=== PATIENT | male | born 1935 | race Caucasian/White ===

== ENCOUNTER 2016-07-08 00:46 | Inpatient (IN) | payer MEDICARE, BC ==
--- NOTE | 2016-07-08 01:49 | ED ---
General Adult HPI - General Chief complaint: Shortness of Breath Stated complaint: Low BP/Fluid on Lungs Time Seen by Provider: 07/08/16 01:06 Source: patient Mode of arrival: ambulatory Limitations: no limitations - History of Present Illness Initial comments: Patient is a transfer from [facility], the ER doctor called me about Mr. Robert jeffers, decided he presented with cough and he had a fever of 1 or 2 pills so doubt that his troponin was elevated they checked his 2 troponins in the boat were able normally elevated at one point he had a low blood pressure he got some fluid bolus that helped the blood pressure get better he did the CT chest angiogram, rule out PE, he was given antibiotics and now fluids chest x-ray was done and showed right pleural effusion CBC was normal troponin is elevated 2 the MP was elevated as well his lactate was elevated. His INR was 2.08. 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 On arrival he feels lot better than he did an [facility] shortness of breath has resolved pretty much and he do not have any chest pain) previous system is unremarkable - Related Data Home Medications Medication Instructions Recorded Confirmed Digoxin [Lanoxin] 125 mcg PO DAILY 07/08/16 07/08/16 Furosemide [Lasix] 40 mg PO DAILY 07/08/16 07/08/16 Magnesium Oxide [Mag-Ox] 250 mg PO DAILY 07/08/16 07/08/16 Metoprolol Tartrate [Lopressor] 75 mg PO BID 07/08/16 07/08/16 Simvastatin [Zocor] 10 mg PO DAILY 07/08/16 07/08/16 Spironolactone [Aldactone] 12.5 mg PO DAILY 07/08/16 07/08/16 Warfarin [Coumadin] 5 mg PO DAILY 07/08/16 07/08/16 traMADol HCl [Ultram] 50 mg PO Q6H PRN 07/08/16 07/08/16 Allergies Allergy/AdvReac Type Severity Reaction Status Date / Time No Known Allergies Allergy Verified 07/08/16 00:53 Review of Systems ROS Statement: Those systems with pertinent positive or pertinent negative responses have been documented in the HPI. ROS Other: All systems not noted in ROS Statement are negative. Past Medical History Past Medical History: Coronary Artery Disease (CAD) History of Any Multi-Drug Resistant Organisms: None Reported Past Surgical History: Coronary Bypass/CABG Past Psychological History: No Psychological Hx Reported Smoking Status: Never smoker Past Alcohol Use History: Rare Past Drug Use History: None Reported General Exam - General Exam Comments Initial Comments: General: The patient is awake and alert, in no distress, and does not appear acutely ill. ACS is 15 Skin: Skin is warm and dry and no rashes or lesions are noted. He has a good skin color Eye: Pupils are equal, round and reactive to light, extra-ocular movements are intact; there is normal conjunctiva bilaterally. Ears, nose, mouth and throat: There are moist mucous membranes and no oral lesions. Neck: The neck is supple, there is no tenderness or JVD. Cardiovascular: There is a regular rate and rhythm. No murmur, rub or gallop is appreciated. Noticed a scar from his previous CABG Respiratory: To auscultation bilateral, decreased breath sounds bilateral Gastrointestinal: Soft, non-distended, non-tender abdomen without masses or organomegaly noted. There is no rebound or guarding present. Bowel sounds are unremarkable. Back: There is no tenderness to palpation in the midline. There is no obvious deformity. Musculoskeletal: Normal ROM, no tenderness, There is no pedal edema. There is no calf tenderness or swelling. No cords were appreciated. Neurological: CN II-XII intact, Cranial nerves III through XII are intact. There are no obvious motor or sensory deficits. Coordination appears grossly intact. Speech is normal. Psychiatric: Cooperative, appropriate mood & affect, normal judgment. Limitations: no limitations Course Vital Signs 07/08/16 00:48 Temperature 98.4 F Pulse Rate 95 Respiratory 18 Rate Blood Pressure 111/64 O2 Sat by Pulse 97 Oximetry EKG Findings - EKG Comments: EKG Findings:: EKG is a sinus rhythm with a first-degree block the patient has a history of atrial fibrillation is ventricular rate is 94 NC interval is 224 QRS duration is 122 QT/QTc is 394/492 noticed some T-wave flattening in lead 1 and lead 3 T-wave flattening in aVL as well noticed some mom ST depression in lead V6 noticed poor progression of the R wave in lead V1 and V2 and V3 Critical Care Time Total Critical Care Time: 45 Critical Care Time: This is a transfer from [facility], on arrival patient examined reviewed all his blood work done there that included CBC, comprehensive metabolic panel, troponin, BNP, chest x-rays, CT chest, noticed that 2 troponins were elevated though he is not a candidate of any heparinization CN since he is in a Coumadin and his INR is almost therapeutic 2.0 to he had antibiotics done at [facility] because his his temp was elevated and clinically he wasn't septic because he was hypotensive he had a fever cough and breakers according to the family considering he has no drug ALLERGY and will start him on on Zosyn considering his elevated troponin he will be consulted cardiology will add aspirin to his Coumadin he had some fluids and hemodynamically is stable and clinically he is looking a lot better Disposition Clinical Impression: Fever, Myocardial infarction, Hypotension, Pneumonia, Pleural effusion Disposition: ADMITTED IP TO THIS HOSP Condition: Good
[2016-07-08] MEDS ORDERED: NITROGLYCERIN SL TABS 0.4 MG TAB SUBLINGUAL PRN (01:50)
[2016-07-08] MEDS ORDERED: ACETAMINOPHEN TAB 325 MG TAB PO PRN (01:50)
[2016-07-08] MEDS ORDERED: MORPHINE SULFATE 2 MG/ML SYRINGE IVP PRN (01:50)
[2016-07-08 03:18] VITALS: BMI 24.0
[2016-07-08 04:20] LABS: Creatine Kinase MB 0.7 ng/mL (0.0-2.4)
[2016-07-08 04:43] LABS: Troponin I 0.078 ng/mL (0.000-0.034)
[2016-07-08] MEDS ORDERED: PIPERACILLIN-TAZOBACTAM 3.375 GM in DEXTROSE/WATER 1 50ML.BAG IVPB SCH (08:00)
[2016-07-08 08:36] LABS: INR 2.1 (<1.1); Prothrombin Time 19.9 sec (9.0-12.0)
[2016-07-08] MEDS ORDERED: ATORVASTATIN 10 MG TAB PO SCH (09:00)
[2016-07-08 09:11] LABS: Creatine Kinase MB 0.8 ng/mL (0.0-2.4)
[2016-07-08 09:14] LABS: Troponin I 0.082 ng/mL (0.000-0.034)
[2016-07-08] MEDS: MAGNESIUM OXIDE 400 MG TAB PO SCH (09:33)
[2016-07-08] MEDS: DIGOXIN 125 MCG TAB PO SCH (09:33)
[2016-07-08] MEDS: FUROSEMIDE 40 MG TAB PO SCH (09:33)
[2016-07-08] MEDS: SPIRONOLACTONE 25 MG TAB PO SCH (09:33)
--- NOTE | 2016-07-08 10:38 | P.PN ---
Progress Note - Text This is an addendum to the dictated cardiology consultation. The patient is an 80-year-old male with status post CABG and AVR in 2006, severe ischemic cardiomyopathy who was transferred from [facility] was progressive dyspnea, cough productive of dark sputum. He had no associated chest discomfort , peripheral edema, PND or orthopnea. He has chronic dyspnea on exertion worse now. He has a history of chronic atrial fibrillation anticoagulated. His last echocardiogram performed recently showed a severely impaired systolic function. He has minimal elevation of his troponin most likely representing a type II event. The patient has no evidence to suggest acute ischemic symptoms or finding or congestive heart failure. His blood pressure was low on presentation but it has stabilized after fluid boluses. I will continue on his cardiac medication, if his blood pressure stabilize then a trial with an АНДРЕЙ inhibitor would be indicated. He has been started on antibiotics. We will repeat his chest x-ray to follow-up his pleural effusion. Depending on his progress further recommendations will be made. Thank you for this consult we will follow with you.
--- NOTE | 2016-07-08 10:44 | P.CRDCN ---
History of Present Illness Consult date: 07/08/16 Requesting physician: Manuel Jimenez Reason for Consult (text): Abnormal troponin Chief complaint: Cough and shortness of breath History of present illness: This is a pleasant 80-year-old gentleman who follows regularly with Dr. Muro in the office. He has known history of coronary artery disease with prior bypass surgery, prior history of aortic valve replacement, hypertension, hyperlipidemia, ischemic cardiomyopathy, chronic persistent atrial fibrillation, he is on Coumadin at home for anticoagulation, INR 2.1. Patient presented to [facility] with symptoms of productive cough of brown sputum with associated chills and mild fever, mild associated shortness of breath. Patient denies any chest discomfort, although approximately 2 weeks ago he states he had 3 episodes of sharp chest pain lasting a second at a time. Denies PND or orthopnea. Laboratory data was reviewed, troponin at [place] 0.05, 0.08, d-dimer 0.4, dig level 0.5, BNP 5636, TSH 1.3, sodium 139, potassium 9, BUN 31, creatinine 1.0. WBC 8.4, hemoglobin 14, platelets 155. Troponins on arrival here, 0.08, 0.07. Chest x-ray performed at [place] revealed a moderate right-sided pleural effusion. CT was also performed of the chest which revealed a moderate right-sided pleural effusion with no evidence for pulmonary embolism. Patient's blood pressure [place] was noted to be significantly low, patient was given IV fluids and was also initiated on IV antibiotics. EKG performed at [place] shows atrial fibrillation with a controlled ventricular response. Echocardiogram with Doppler study was performed in the office in February which revealed moderate tricuspid regurg, mild prosthetic valvular which, ejection fraction of 20%. At the time of my examination this morning, patient complains of feeling extremely weak and tired , continues to have cough however he states that the sputum is much more clear in color. Lying flat in bed at the time of my examination, denies any significant shortness of breath. Past Medical History Past Medical History: Atrial Fibrillation, Coronary Artery Disease (CAD), Chest Pain / Angina, Heart Failure, Hyperlipidemia History of Any Multi-Drug Resistant Organisms: None Reported Past Surgical History: Coronary Bypass/CABG Past Anesthesia/Blood Transfusion Reactions: No Reported Reaction Past Psychological History: No Psychological Hx Reported Smoking Status: Never smoker Past Alcohol Use History: Rare Past Drug Use History: None Reported - Past Family History Father Family Medical History: Myocardial Infarction (OR) Additional Family Medical History / Comment(s): at age 69 Mother Family Medical History: No Reported History Medications and Allergies Home Medications Medication Instructions Recorded Confirmed Type Digoxin [Lanoxin] 125 mcg PO DAILY 07/08/16 07/08/16 History Furosemide [Lasix] 40 mg PO DAILY 07/08/16 07/08/16 History Magnesium Oxide [Mag-Ox] 500 mg PO DAILY 07/08/16 07/08/16 History Metoprolol Tartrate [Lopressor] 75 mg PO BID 07/08/16 07/08/16 History Simvastatin [Zocor] 10 mg PO HS 07/08/16 07/08/16 History Spironolactone [Aldactone] 12.5 mg PO DAILY 07/08/16 07/08/16 History Warfarin [Coumadin] 5 mg PO DAILY 07/08/16 07/08/16 History traMADol HCl [Ultram] 50 mg PO Q8H PRN 07/08/16 07/08/16 History Allergies Allergy/AdvReac Type Severity Reaction Status Date / Time No Known Allergies Allergy Verified 07/08/16 09:05 Physical Exam Vitals: Vital Signs Temp Pulse Pulse Resp BP BP Pulse Ox 07/08/16 07:57 97.4 F L 93 20 108/68 98 07/08/16 04:00 98.4 F 96 16 107/56 96 07/08/16 02:41 97.7 F 07/08/16 02:28 97.7 F 89 18 103/57 98 07/08/16 02:12 98.4 F 96 16 107/56 96 07/08/16 02:00 90 18 117/66 98 07/08/16 01:51 96 Intake and Output 07/07/16 07/08/16 07/08/16 22:59 06:59 14:59 Output Total 150 Balance -150 Output: Urine 150 Other: Voiding Method Toilet # Voids 2 Weight 77.6 kg PHYSICAL EXAMINATION: HEENT: [Head is atraumatic, normocephalic. Pupils equal, round. Neck is supple. There is no elevated jugular venous pressure.] HEART EXAMINATION: S1 and S2 irregularly irregular systolic murmur heard CHEST EXAMINATION: Lungs reveal fine crackles to bilateral bases with decreased air entry right greater than left. ABDOMEN: [ Soft, nontender. Bowel sounds are heard. No organomegaly noted]. EXTREMITIES:[ 2+ peripheral pulses with trace evidence of peripheral edema and no calf tenderness noted]. NEUROLOGIC [patient is awake, alert and oriented -3.] . Results Cardiac Enzymes 07/08/16 07/08/16 Range/Units 03:13 07:56 CK-MB (CK-2) 0.7 0.8 (0.0-2.4) ng/mL Troponin I 0.078 H* 0.082 H* (0.000-0.034) ng/mL Coagulation 07/08/16 Range/Units 07:56 PT 19.9 H (9.0-12.0) sec Current Medications Generic Name Dose Route Start Last Admin Trade Name Freq PRN Reason Stop Dose Admin Acetaminophen 650 mg 07/08/16 01:50 Tylenol Tab PO Q4HR PRN Pain Aspirin 325 mg 07/09/16 09:00 Aspirin PO DAILY [facility] Atorvastatin Calcium 40 mg 07/08/16 21:00 Lipitor PO HS LUDWIG Digoxin 125 mcg 07/08/16 09:00 07/08/16 09:33 Lanoxin PO 125 mcg DAILY LUDWIG Administration Furosemide 40 mg 07/08/16 09:00 07/08/16 09:33 Lasix PO 40 mg DAILY LUDWIG Administration Piperacillin/Tazobactam/ 50 mls @ 12.5 mls/hr 07/08/16 08:00 07/08/16 08:18 Dextrose 3.375 gm/ IV Solution IVPB 12.5 mls/hr Q8HR LUDWIG Administration Magnesium Oxide 400 mg 07/08/16 09:00 07/08/16 09:33 Mag-Ox PO 400 mg DAILY [facility] Administration Metoprolol Tartrate 75 mg 07/08/16 09:00 Lopressor PO BID LUDWIG Morphine Sulfate 2 mg 07/08/16 01:50 Morphine Sulfate (Inj) IVP Q5M PRN Chest Pain Nitroglycerin 0.4 mg 07/08/16 01:50 Nitrostat SUBLINGUAL Q5M PRN Chest Pain Spironolactone 12.5 mg 07/08/16 09:00 07/08/16 09:33 Aldactone PO 12.5 mg DAILY [facility]UDWIG Administration Tramadol HCl 50 mg 07/08/16 01:56 Ultram PO Q6H PRN Pain Warfarin Sodium 5 mg 07/08/16 18:00 Coumadin PO DAILY@1800 LUDWIG Intake and Output 07/07/16 07/08/16 07/08/16 22:59 06:59 14:59 Output Total 150 Balance -150 Output: Urine 150 Other: Voiding Method Toilet # Voids 2 Weight 77.6 kg EKG Interpretations (text) Assessment and plan #1 symptoms of productive cough of amador sputum with associated mild fever and weakness. Suggestion of pneumonia. Currently on IV antibiotics. Suggestion of right pleural effusion on chest x-ray and CAT scan. He ruled out. #2 known history of coronary artery disease with prior bypass surgery, history of aortic valve replacement with tissue valve. #3 chronic persistent atrial fibrillation, on Coumadin, therapeutic. #4 hypertension #5 hyperlipidemia #6 abnormal troponins, not consistent with acute coronary syndrome, could be secondary to oxygen supply demand mismatch. #7 hypotension, resolved. Plan Continue IV antibiotics. Discontinue aspirin. Continue metoprolol tartrate 75 mg one tablet by mouth twice a day along with Aldactone and Coumadin. If the patient's blood pressure remained stable, consider the addition of an АНДРЕЙ inhibitor. DNP note has been reviewed, I agree with a documented findings and plan of care. Patient was seen and examined.
[2016-07-08] MEDS ORDERED: IPRATROPIUM-ALBUTEROL 3 ML NEB INHALATION PRN (11:05)
[2016-07-08] MEDS ORDERED: BENZOCAINE/MENTHOL LOZENG 1 EACH LOZENGE MUCOUS MEM PRN (11:08)
[2016-07-08 11:10] LABS: CHCM 32.9; HCT 40.8 % (39.0-53.0); HDW 2.66; HGB 13.3 gm/dL (13.0-17.5); MCHC 32.6 g/dL (31.0-37.0); MCV 91.8 fL (80.0-100.0); Mean Platelet Volume 8.8; RBC 4.44 m/uL (4.30-5.90); RDW 15.2 % (11.5-15.5); WBC 8.3 k/uL (3.8-10.6)
[2016-07-08 11:17] LABS: ALT 38 U/L (21-72); AST 31 U/L (17-59); Alkaline Phosphatase 100 U/L (38-126); Anion Gap 13 mmol/L; Blood Urea Nitrogen 26 mg/dL (9-20); Calcium 8.7 mg/dL (8.4-10.2); Carbon Dioxide 23 mmol/L (22-30); Chloride 104 mmol/L (98-107); Glucose 94 mg/dL (74-99); Non-African American GFR(MDRD) >60 (>60 ml/min/1.73 sqM); Potassium 4.6 mmol/L (3.5-5.1); Sodium 140 mmol/L (137-145); Total Protein 6.9 g/dL (6.3-8.2)
[2016-07-08] MEDS: METOPROLOL TARTRATE 25 MG TAB PO SCH ×2 (11:57→22:28)
[2016-07-08] MEDS: AZITHROMYCIN 500 MG TAB PO SCH (11:57)
[2016-07-08] MEDS: traMADol 50 MG TAB PO PRN ×2 (12:03→22:28)
--- NOTE | 2016-07-08 13:06 | HP ---
DATE OF ADMISSION: Patient is an 80-year-old gentleman with history of ischemic cardiomyopathy. I do not know the ejection fraction. None of the echocardiograms are available here. Patient is on 20 mg of Lasix at home and is on Coumadin for atrial fibrillation. Came in with complaints of cough with sputum production and patient apparently had a fever of 101 degrees at the outside hospital, although the patient is afebrile here. Patient had a CT of the chest, which showed some right-side pleural effusion and some atelectasis. I am unable to open up the images from there. We are obtaining an x-ray here. The patient is being is treated for pneumonia. Patient was started on Zosyn. I changed it to Rocephin. Patient denied any flu-like symptoms. Will obtained a sputum culture. Cardiology evaluated for possibility of CHF and patient does not appear to be in CHF exacerbation at this point of time. His dig levels are 0.5 at the other hospital. Creatinine is essentially within normal limits. Patient did not have any leukocytosis. Patient has minimally elevated to troponin of 0.078 and 0.082, not high enough to say cardiac and patient does not have any active chest pain. Patient was having chest pains episodic in the past which appears to be mostly related to his pleural effusion. CT did not show any evidence of pulmonary embolism. The patient was complaining of shortness of breath upon ambulation. REVIEW OF SYSTEMS: GENERAL: As described in HPI. HEENT: No recent visual problems or hearing problems. Denied any sore throat. CARDIOVASCULAR: No chest pain, orthopnea, PND, no palpitations, no syncope. PULMONARY: As described in HPI. Patient denied any orthopnea or PND. GASTROINTESTINAL: No diarrhea, no nausea, no vomiting, no abdominal pain. Normoactive bowel sounds. NEUROLOGICAL: No headaches, no weakness, no numbness. HEMATOLOGICAL: Denies any bleeding or petechiae. GENITOURINARY: Denies any burning micturition, frequency, or urgency. MUSCULOSKELETAL/RHEUMATOLOGICAL: Denies any joint pain, swelling, or any muscle pain. ENDOCRINE: Denies any polyuria or polydipsia. The rest of the 14 point review of systems is negative. PAST MEDICAL HISTORY: Significant for atrial fibrillation, coronary artery disease, congestive heart failure, hyperlipidemia. PAST SURGICAL HISTORY: Coronary artery bypass grafting in the past. SOCIAL HISTORY: Denies any smoking, alcohol abuse or any drug abuse. FAMILY HISTORY: Father had myocardial infarction, at age 69. Home medications include: 1. Digoxin. 2. Lasix. 3. Magnesium oxide. 4. Metoprolol. 5. Simvastatin. 6. Spironolactone. 7. Coumadin. 8. Tramadol. ALLERGIES: No known drug allergies. PHYSICAL EXAMINATION: VITAL SIGNS: Temperature 98.0, pulse of 96, respiratory rate of 20, blood pressure is 110/67. Saturating at 99% on 2 L O2 nasal cannula. GENERAL: The patient is alert and oriented x3, not in any acute distress. Well developed, well nourished. HEENT: Pupils are round and equally reacting to light. EOMI. No scleral icterus. No conjunctival pallor. Normocephalic, atraumatic. No pharyngeal erythema. No thyromegaly. CARDIOVASCULAR: S1 and S2 present. No murmurs, rubs, or gallops. PULMONARY: Chest is clear to auscultation, no wheezing or crackles. ABDOMEN: Soft, nontender, nondistended, normoactive bowel sounds. No palpable organomegaly. MUSCULOSKELETAL: No joint swelling or deformity. EXTREMITIES: No cyanosis, clubbing, or pedal edema. NEUROLOGICAL: Gross neurological examination did not reveal any focal deficits. SKIN: No rashes. LABORATORY DATA: CBC, CMP, essentially within normal limits. Troponin are minimally elevated and EKG did not show any acute ST-T wave changes. I do not have a chest x-ray available here. ASSESSMENT AND PLAN: 1. Possible pneumonia or severe tracheobronchitis Patient's antibiotics will be changed to Rocephin and azithromycin. I will get a repeat chest x-ray. Because of the congestive heart failure history, unknown whether he actually has congestive heart failure or not, will not give him any Lasix. Patient will be continued on his oral dose of Lasix. Patient will not be given any IV fluids. 2. History of ischemic cardiomyopathy. The patient is presently euvolemic and ejection fraction is unknown at this point of time. Patient is not in acute exacerbation. 3. Coronary artery disease, status post bypass surgery. 4. Chronic persistent atrial fibrillation, rate controlled on Coumadin, therapeutic on Coumadin. 5. Hypertension. 6. Hyperlipidemia. 7. Abnormal elevated troponin without any evidence of acute coronary ischemia. PLAN: Sputum cultures, blood cultures, antibiotics. Continue to follow. If patient improves, he can be discharged tomorrow on oral antibiotics.
[2016-07-08] MEDS ORDERED: WARFARIN 5 MG TAB PO SCH (18:00)
[2016-07-08] MEDS: ATORVASTATIN 40 MG TAB PO SCH (22:28)
[2016-07-09 06:07] LABS: CHCM 33.7; HCT 39.4 % (39.0-53.0); HDW 2.68; HGB 13.3 gm/dL (13.0-17.5); MCH 30.2 pg (25.0-35.0); MCHC 33.8 g/dL (31.0-37.0); MCV 89.4 fL (80.0-100.0); Mean Platelet Volume 8.9; RBC 4.41 m/uL (4.30-5.90); RDW 15.1 % (11.5-15.5); WBC 7.4 k/uL (3.8-10.6)
[2016-07-09 06:16] LABS: INR 1.6 (<1.1); Prothrombin Time 15.6 sec (9.0-12.0)
[2016-07-09 06:26] LABS: ALT 36 U/L (21-72); AST 31 U/L (17-59); Alkaline Phosphatase 96 U/L (38-126); Anion Gap 10 mmol/L; Blood Urea Nitrogen 22 mg/dL (9-20); Calcium 8.9 mg/dL (8.4-10.2); Carbon Dioxide 25 mmol/L (22-30); Chloride 103 mmol/L (98-107); Cholesterol 118 mg/dL (<200); Glucose 88 mg/dL (74-99); HDL Cholesterol 47 mg/dL (40-60); Non-African American GFR(MDRD) >60 (>60 ml/min/1.73 sqM); Potassium 4.7 mmol/L (3.5-5.1); Sodium 138 mmol/L (137-145); Total Bilirubin 0.9 mg/dL (0.2-1.3); Total Protein 6.9 g/dL (6.3-8.2); Triglycerides 40 mg/dL (<150)
[2016-07-09] MEDS: MAGNESIUM OXIDE 400 MG TAB PO SCH (08:21)
[2016-07-09] MEDS: FUROSEMIDE 40 MG TAB PO SCH (08:21)
[2016-07-09] MEDS: AZITHROMYCIN 500 MG TAB PO SCH (08:21)
[2016-07-09] MEDS: DIGOXIN 125 MCG TAB PO SCH (08:21)
[2016-07-09] MEDS: SPIRONOLACTONE 25 MG TAB PO SCH (08:22)
--- NOTE | 2016-07-09 08:28 | XR ---
EXAMINATION TYPE: XR chest 2V DATE OF EXAM: 07/09/2016 6:37 AM COMPARISON: 07/07/2016 TECHNIQUE: PA and lateral views submitted. HISTORY: Cough FINDINGS: Right lower lobe infiltrate and small effusion is stable. Heart is enlarged. Postsurgical change and atherosclerotic change aorta noted. Arthropathy of the shoulders. Degenerativ e change of the spine noted. Epicardial leads seen. Chronic appearing wedge deformity lower thoracic spine. IMPRESSION: 1. Stable right lower lobe infiltrate and small effusion. 2. Correlate for COPD.
[2016-07-09] MEDS ORDERED: ASPIRIN 325 MG TAB PO SCH (09:00)
[2016-07-09] MEDS: METOPROLOL TARTRATE 25 MG TAB PO SCH ×2 (09:24→20:18)
--- NOTE | 2016-07-09 13:52 | P.PN ---
Subjective Principal diagnosis: Pneumonia This is a pleasant 80-year-old gentleman who follows regularly with Dr. Muro in the office. He has a known history of coronary artery bypass grafting surgery and prior aortic valve replacement. Patient was initially transferred here from [facility], he was having symptoms of shortness of breath with associated productive cough. Receiving IV antibiotics for possible pneumonia. Blood pressure [place] was initially on the low side, patient did receive some IV fluids his blood pressure today is in the 90 to low 100 systolic range. He is feeling well overall hoping to be discharged home. Chest x-ray performed today revealed a stable right-sided pleural effusion. INR today 1.6. We'll give the patient 7-1/2 mg of Coumadin today, then resume his home dose of 5 mg daily. Continue to hold АНДРЕЙ inhibitor until reevaluated at his office visit next week. Objective - Vital Signs Vital signs: Vital Signs Temp 98.2 F 07/09/16 11:11 Pulse 90 07/09/16 11:11 Resp 20 07/09/16 11:11 BP 96/62 07/09/16 11:11 Pulse Ox 96 07/09/16 11:11 Intake & Output 07/08/16 07/09/16 07/09/16 18:59 06:59 18:59 Intake Total 580 1860 480 Output Total 1150 150 900 Balance -570 1710 -420 Weight 76.8 kg Intake: IV 100 Piperacillin-Tazobactam 3 50 .375 gm In Dextrose/Water 1 50ml.bag @ 12.5 mls/hr IVPB Q8HR [facility] Rx#: [id number] cefTRIAXone 1,000 mg In 50 Sodium Chloride 0.9% 50 ml @ 100 mls/hr IVPB Q24HR LUDWIG Rx#:[id number] Oral 480 1860 480 Output: Urine 1150 150 900 Other: Voiding Method Toilet Toilet Toilet Urinal Urinal # Voids 1 1 1 # Bowel Movements 1 - Exam PHYSICAL EXAMINATION: HEENT: Head is atraumatic, normocephalic. Pupils equal, round. Neck is supple. There is no elevated jugular venous pressure. HEART EXAMINATION: S1 and S2 irregularly irregular CHEST EXAMINATION: And's reveal fine crackles to bilateral bases. ABDOMEN: Soft, nontender. Bowel sounds are heard. No organomegaly noted. EXTREMITIES: 2+ peripheral pulses with no evidence of peripheral edema and no calf tenderness noted. NEUROLOGIC patient is awake, alert and oriented -3. . - Labs CBC & Chem 7: 07/09/16 05:41 07/09/16 05:41 Labs: Abnormal Lab Results - Last 24 Hours (Table) 07/09/16 07/09/16 07/09/16 Range/Units 05:41 05:41 05:41 Plt Count 134 L (150-450) k/uL PT 15.6 H (9.0-12.0) sec BUN 22 H (9-20) mg/dL Assessment and Plan (1) Pneumonia Status: Acute (2) CAD (coronary artery disease) Status: Acute (3) Hx of CABG Status: Acute (4) HTN (hypertension) Status: Acute (5) Hyperlipemia Status: Acute (6) Elevated troponin Status: Acute (7) Hypotension Status: Acute Plan: From cardiology's perspective, we'll give the patient 7-1/2 mg of Coumadin today. And resume the home dose of 5 daily. Obtain PT/INR on Thursday. Follow- up appointment will be made with Dr. Muro in the office post discharge. DNP note has been reviewed, I agree with a documented findings and plan of care. Patient was seen and examined.
--- NOTE | 2016-07-09 14:07 | PN ---
Patient is admitted with a right lower lobe pneumonia and patient is clinically doing well and patient had a low-grade fever yesterday. Will treat him for pneumonia and possibility of discharge tomorrow. Patient will continued on IV antibiotics. REVIEW OF SYSTEMS: CARDIOVASCULAR: No chest pain, no orthopnea, no PND, no palpitations. GASTROINTESTINAL: No diarrhea, nausea or vomiting. No abdominal pain. Normoactive bowel sounds. NEUROLOGIC: No headaches, no weakness, no numbness. RESPIRATORY: Patient is having a little bit of cough. Beyond that, patient is doing okay. Medications were reviewed. PHYSICAL EXAMINATION: VITAL SIGNS: Temperature 98.2, pulse of 90, respiratory rate of 20, blood pressure 96/62. Saturating at 96% on room air. GENERAL: The patient is alert and oriented x3, not in any acute distress. Well developed, well nourished. HEENT: Pupils are round and equally reacting to light. EOMI. No scleral icterus. No conjunctival pallor. Normocephalic, atraumatic. No pharyngeal erythema. No thyromegaly. CARDIOVASCULAR: S1 and S2 present. No murmurs, rubs, or gallops. ABDOMEN: Soft, nontender, nondistended, normoactive bowel sounds. No palpable organomegaly. MUSCULOSKELETAL: No joint swelling or deformity. EXTREMITIES: No cyanosis, clubbing, or pedal edema. NEUROLOGICAL: Gross neurological examination did not reveal any focal deficits. SKIN: No rashes. RESPIRATORY EXAMINATION: Rhonchus breath sounds. Patient has mild crackles in the right lower lung prakash. ASSESSMENT AND PLAN: 1. Pneumonia with parapneumonic effusion. Continue with Rocephin and azithromycin. 2. History of ischemic cardiomyopathy, unknown ejection fraction. Patient is fairly euvolemic at this point of time. Although his blood pressure is on the low-normal side, patient will be continued on her home dose of Lasix. 3. History of atrial fibrillation, rate controlled, on metoprolol which will be continued. Patient is on anticoagulation with Coumadin, therapeutic on Coumadin. Yesterday a bit subtherapeutic but I will continue the same dose of Coumadin, considering that he is on antibiotics. Patient's INR is expected to go up tomorrow. 4. Hypertension. 5. Hyperlipidemia. 6. Mildly elevated troponin secondary to demand ischemia.
[2016-07-09] MEDS ORDERED: WARFARIN 7.5 MG TAB PO ONE (18:00)
[2016-07-09] MEDS: ATORVASTATIN 40 MG TAB PO SCH (20:18)
[2016-07-09 22:49] VITALS: RESP 16
[2016-07-10 01:05] VITALS: TEMP 97.2
[2016-07-10 08:02] VITALS: PULSE 104
[2016-07-10] MEDS: SPIRONOLACTONE 25 MG TAB PO SCH (10:05)
[2016-07-10] MEDS: DIGOXIN 125 MCG TAB PO SCH (10:06)
[2016-07-10] MEDS: MAGNESIUM OXIDE 400 MG TAB PO SCH (10:06)
[2016-07-10] MEDS: FUROSEMIDE 40 MG TAB PO SCH (10:06)
[2016-07-10] MEDS: AZITHROMYCIN 500 MG TAB PO SCH (10:06)
[2016-07-10 10:14] LABS: Prothrombin Time 19.4 sec (9.0-12.0)
[2016-07-10 10:40] VITALS: BP 112/68
[2016-07-10] MEDS: METOPROLOL TARTRATE 25 MG TAB PO SCH (10:41)
--- NOTE | 2016-07-11 08:52 | DS ---
DATE OF ADMISSION: 07/08/2016 DATE OF DISCHARGE: 07/10/2016 Patient is admitted with right lower lobe pneumonia. Fevers resolved. Patient is being discharged on ( ) and three days of Azithromycin. The patient was seen and examination on the day of discharge. Vital signs stable. PHYSICAL EXAMINATION: GENERAL: The patient is alert and oriented x3, not in any acute distress. Well developed, well nourished. HEENT: Pupils are round and equally reacting to light. EOMI. No scleral icterus. No conjunctival pallor. Normocephalic, atraumatic. No pharyngeal erythema. No thyromegaly. CARDIOVASCULAR: S1 and S2 present. No murmurs, rubs, or gallops. PULMONARY: Crackles in the right lower lung bases. ABDOMEN: Soft, nontender, nondistended, normoactive bowel sounds. No palpable organomegaly. MUSCULOSKELETAL: No joint swelling or deformity. EXTREMITIES: No cyanosis, clubbing, or pedal edema. NEUROLOGICAL: Gross neurological examination did not reveal any focal deficits. SKIN: No rashes. Laboratory data was reviewed. ASSESSMENT AND PLAN: 1. Pneumonia with parapneumonic effusion, management as mentioned above. History of ischemic cardiomyopathy with ejection fraction is unknown. Patient is euvolemic at this point of time ( ) congestive heart failure exacerbation . 2. History of atrial fibrillation, rate controlled, therapeutic on Coumadin. 3. Hypertension. 4. Hyperlipidemia. 5. Mildly elevated troponin secondary to mild ischemia. Patient will be discharged today. Will follow up with his primary care physician in [address] Muro July 17 at 3:00 p.m. Activity as tolerated. Cardiac diet. Spent greater than 35 minutes in total discharge process.
== END 2016-07-10 13:53 | disposition home or self-care (01) | DRG 194 ==
LOC: EC 00:46 → 6SEL 01:49 → 4MS4W 07-09 21:46
PROVIDERS: ADMIT Hospitalist; ATTEND Hospitalist
DX: J18.9 Pneumonia, unspecified organism (principal); I48.1 Persistent atrial fibrillation; I95.9 Hypotension, unspecified; I50.9 Heart failure, unspecified; I07.1 Rheumatic tricuspid insufficiency; I48.2 Chronic atrial fibrillation; I25.5 Ischemic cardiomyopathy; I10 Essential (primary) hypertension; E78.5 Hyperlipidemia, unspecified; I25.10 Atherosclerotic heart disease of native coronary artery without angina pectoris; Z79.01 Long term (current) use of anticoagulants; Z79.899 Other long term (current) drug therapy; Z95.1 Presence of aortocoronary bypass graft; Z95.2 Presence of prosthetic heart valve; Z82.49 Family history of ischemic heart disease and other diseases of the circulatory system
CPT/HCPCS: 71020; 80053; 80061; 82550; 82553; 83605; 84484; 85027; 85610; 87070; 87205; 87502; 93005; 94640; 94760; 99291